=== PATIENT | female | born 1960 | race African-American/Black ===

== ENCOUNTER 2017-03-18 22:46 | Inpatient (IN) | payer BC ==
[~2017-03-18] VITALS: Ht 175.3 cm; Wt 89.8 kg
[2017-03-18] MEDS ORDERED: DIPHTH,PERTUSS(ACELL),TET TOX 0.5 ML DISP.SYRIN. VAX IM ONE (23:30)
[2017-03-18] MEDS ORDERED: PIPERACILLIN/TAZOBACTAM 3.375 GM in IV NORMAL SALINE 50ML 50 ML IV ONE (23:30)
[2017-03-18] MEDS ORDERED: fentaNYL PF VIAL 100 MCG/2 ML VIAL IV ONE (23:30)
[2017-03-18] MEDS ORDERED: IV NORMAL SALINE 1000ML BAG 1,000 ML IV ONE (23:30)
--- NOTE | 2017-03-18 23:37 | PHYS DOC ---
Past Medical History Past Medical History: No Pertinent History Past Surgical History: Hip Replacement Alcohol Use: None Drug Use: None Adult General Chief Complaint Chief Complaint: WRIST PAIN HPI HPI Patient is a 56 year old female with history of hip replacement who presents today complaining of moderate right wrist pain that began today after she fell. Patient denies any loss of consciousness. She states she was taking trash out with her when she saw 2 raccoons which scared her and fell down bracing herself with her right hand. Review of Systems Review of Systems Constitutional: Denies fever or chills [] Eyes: Denies change in visual acuity, redness, or eye pain [] HENT: Denies nasal congestion or sore throat [] Respiratory: Denies cough or shortness of breath [] Cardiovascular: No additional information not addressed in HPI [] GI: Denies abdominal pain, nausea, vomiting, bloody stools or diarrhea [] : Denies dysuria or hematuria [] Musculoskeletal: Right wrist pain Integument: Denies rash or skin lesions [] Neurologic: Denies headache, focal weakness or sensory changes [] Current Medications Current Medications Current Medications Medications (Trade) Dose Ordered Sig/Makenna Start Time Stop Time Status Last Admin Dose Admin Diphtheria/ Tetanus/Acell Pertussis (Boostrix) 0.5 ml ONCE ONCE 03/18/17 23:30 03/18/17 23:31 DC 03/19/17 00:09 0.5 ML Fentanyl Citrate (Fentanyl 2ml Vial) 75 mcg 1X ONCE 03/18/17 23:30 03/18/17 23:31 DC 03/19/17 00:08 75 MCG Piperacillin Sod/ Tazobactam Sod 3.375 gm/Sodium Chloride 50 ml @ 100 mls/hr ONCE ONCE 03/18/17 23:30 03/18/17 23:59 DC 03/19/17 00:11 100 MLS/HR Sodium Chloride 1,000 ml @ 75 mls/hr 1X ONCE 03/18/17 23:30 03/19/17 12:49 03/19/17 00:11 75 MLS/HR Allergies Allergies Allergies Coded Allergies Type Severity Reaction Last Updated Verified oxycodone Allergy Unknown 03/18/17 Yes Physical Exam Physical Exam Constitutional: Well developed, well nourished, no acute distress, non-toxic appearance. [] HENT: Normocephalic, atraumatic, bilateral external ears normal, oropharynx moist, no oral exudates, nose normal. [] Eyes: PERRLA, EOMI, conjunctiva normal, no discharge. [] Neck: Normal range of motion, no tenderness, supple, no stridor. [] Cardiovascular:Heart rate regular rhythm, no murmur [] Lungs & Thorax: Bilateral breath sounds clear to auscultation [] Abdomen: Bowel sounds normal, soft, no tenderness, no masses, no pulsatile masses. [] Skin: Warm, dry, no erythema, no rash. [] Back: No tenderness, no CVA tenderness. [] Extremities: Right wrist is obviously deformed. There are abrasions noted on the dorsal as well as ventral aspect of the wrist. Patient unable to take the wrist through any range of motion due to to pain. Patient able to wiggle her right fingers. +2 right radial pulse. Adequate radial medial and ulnar sensation to the right hand. Cap refill less than 2 seconds the right fingers. Neurologic: Alert and oriented X 3, normal motor function, normal sensory function, no focal deficits noted. [] Psychologic: Affect normal, judgement normal, mood normal. [] Current Patient Data Vital Signs Vital Signs Date Time Temp Pulse Resp B/P (MAP) Pulse Ox O2 Delivery O2 Flow Rate FiO2 03/18/17 23:00 98.6 80 16 95 Room Air 98.6 EKG EKG [] Radiology/Procedures Radiology/Procedures [] Course & Med Decision Making Course & Med Decision Making Pertinent Labs and Imaging studies reviewed. (See chart for details) Patient is in the ED with right wrist pain after falling today. Right wrist x- rays interpreted by Dr. King were positive for impacted open fractures of the distal radius. 23:29 Consulted with Dinorah BUSTAMANTE for Dr. Martini-who requested we splint patient, start her on antibiotics, keep her NPO and they will follow-up with patient tomorrow morning for surgery in AM 23:[address] Guerra who accepted patient for admission. Patient was admitted in stable condition. Dragon Disclaimer Dragon Disclaimer This electronic medical record was generated, in whole or in part, using a voice recognition dictation system. Departure Departure Impression: Primary Impression: Fall from standing Additional Impression: Distal radial fracture Disposition: ADMITTED INPATIENT Condition: STABLE Referrals: SHANELL SOSA MD (PCP) Problem Qualifiers Primary Impression: Fall from standing Encounter type: initial encounter Qualified Codes: W19.XXXA - Unspecified fall, initial encounter Additional Impression: Distal radial fracture Encounter type: initial encounter Fracture type: open Open fracture type: open type III Fracture morphology: other fracture Laterality: right Qualified Codes: S52.591C - Other fractures of lower end of right radius, initial encounter for open fracture type IIIA, IIIB, or IIIC LETTY DICKENS APRN Mar 18, 2017 23:37
[2017-03-19] VITALS (9 sets, daily range): BP systolic 124–137; BP diastolic 61–68
[2017-03-19] MEDS ORDERED: ONDANSETRON PF 4 MG/2 ML VIAL. IV PRN ×4 (00:15→17:00)
[2017-03-19] MEDS ORDERED: fentaNYL PF VIAL 100 MCG/2 ML VIAL IV PRN ×4 (00:15→12:15)
[2017-03-19 00:35] LABS: BASO # 0.1 x10^3/uL (0.0-0.2); BASO % 1 % (0-3); EOS % 1 % (0-3); HEMATOCRIT 31.8 % (36.0-47.0); HEMOGLOBIN 10.5 g/dL (12.0-15.5); LYMPH # 2.3 x10^3/uL (1.0-4.8); LYMPH % 24 % (24-48); MEAN CORPUSCULAR HEMOGLOBIN 29 pg (25-35); MEAN CORPUSCULAR HGB CONC 33 g/dL (31-37); MEAN CORPUSCULAR VOLUME 88 fL (79-100); MONO % 8 % (0-9); NEUT % 66 % (31-73); PLATELET COUNT 220 x10^3/uL (140-400); RED BLOOD COUNT 3.63 x10^6/uL (3.50-5.40); RED CELL DISTRIBUTION WIDTH 14.1 % (11.5-14.5); WHITE BLOOD COUNT 9.3 x10^3/uL (4.0-11.0)
[2017-03-19 00:41] LABS: CALCIUM 8.7 mg/dL (8.5-10.1); CREATININE 1.1 mg/dL (0.6-1.0); GFR 61.7; POTASSIUM 3.2 mmol/L (3.5-5.1)
[2017-03-19 00:45] LABS: INR 1.1 (0.8-1.1); PROTHROMBIN TIME PATIENT 13.8 SEC (11.7-14.0)
[2017-03-19] MEDS ORDERED: CEFD300C PO (02:03)
[2017-03-19] MEDS ORDERED: AMOX500C PO (02:03)
[2017-03-19] MEDS ORDERED: SIMV20TA3 PO (02:03)
[2017-03-19] MEDS: PIPERACILLIN/TAZOBACTAM 3.375 GM in IV NORMAL SALINE 50ML 50 ML IV SCH ×3 (06:35→22:04)
--- NOTE | 2017-03-19 07:40 | RAD ---
Wrist x-rays Indication: Fall on wrist. Pain and deformity. Technique: 3 views of the right wrist Comparison: None Findings: Comminuted fracture of the distal radius noted with significant malalignment of the fracture fragments. Dorsal angulation of the dominant distal fracture fragment noted. The fracture extends to the distal radioulnar joint. Moderately displaced fracture of the ulnar styloid process noted. Significant soft tissue edema with soft tissue emphysema is seen around the fracture site. No fractures of the carpal bones. Impression: Comminuted fracture of the distal radius with moderate malalignment of the fracture fragments.
[2017-03-19] MEDS ORDERED: ACETAMINOPHEN 500 MG TABLET PO PRN (08:15)
[2017-03-19] MEDS ORDERED: HYDROcodone/APAP 5/325MG 1 TAB TABLET PO PRN (08:15)
--- NOTE | 2017-03-19 10:59 | PDOC1 ---
History and Physical Date of Admission Date of Admission DATE: 03/19/17 TIME: 10:54 Identification/Chief Complaint Chief Complaint rt hand pain Problems: Source Source: Caregiver, Chart review, Patient History of Present Illness History of Present Illness Very pleasant 56 y.o AA female, relatively healthy, she was taking trash out with her when she saw 2 raccoons which scared her and fell down bracing herself with her right hand. SHe sustained a fx on imaging, NOw admitted with sx planned in few hrs time. 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 Wants to go back to work soon if she can. She is RT handed,. LAbs hgb 10, normocytic indices K 3.2 CREat 1.1 GFR 60s Denies kidney probs in past VS ok Past Medical History Cardiovascular: No pertinent hx Pulmonary: No pertinent hx GI: No pertinent hx Heme/Onc: No pertinent hx Hepatobiliary: No pertinent hx Psych: No pertinent hx Rheumatologic: No pertinent hx Infectious disease: No pertinent hx ENT: No pertinent hx Renal/: No pertinent hx Past Surgical History Past Surgical History: No pertinent history Family History Family History: Hypertension Social History Smoke: No ALCOHOL: none Drugs: None Current Problem List Problem List Problems Medical Problems: (1) Distal radial fracture Status: Acute (2) Fall from standing Status: Acute Problems: Current Medications Current Medications Current Medications Diphtheria/ Tetanus/Acell Pertussis (Boostrix) 0.5 ml ONCE ONCE VAX IM Last administered on 03/19/17 00:09; Start 03/18/17 at 23:30; Stop 03/18/17 at 23:31 ; Status DC Fentanyl Citrate (Fentanyl 2ml Vial) 75 mcg 1X ONCE IV Last administered on 00:08; Start 03/18/17 at 23:30; Stop 03/18/17 at 23:31; Status DC Piperacillin Sod/ Tazobactam Sod 3.375 gm/Sodium Chloride 50 ml @ 100 mls/hr Q8HRS IV Last administered on 03/19/17 06:35; Start 03/19/17 at 06:00 Sodium Chloride 1,000 ml @ 75 mls/hr 1X ONCE IV Last administered on 00:11; Start 03/18/17 at 23:30; Stop 03/19/17 at 12:49 Piperacillin Sod/ Tazobactam Sod 3.375 gm/Sodium Chloride 50 ml @ 100 mls/hr ONCE ONCE IV Last administered on 03/19/17 00:11; Start 03/18/17 at 23:30; Stop 03/18/17 at 23:59; Status DC Ondansetron HCl (Zofran) 4 mg PRN Q8HRS PRN IV NAUSEA/VOMITING Last administered on 03/19/17 00:53; Start 03/19/17 at 00:15; Stop 03/19/17 at 08:04 ; Status DC Fentanyl Citrate (Fentanyl 2ml Vial) 50 mcg PRN Q1HR PRN IV PAIN Last administered on 03/19/17 03:29; Start 03/19/17 at 00:15; Stop 03/20/17 at 00:14 Ondansetron HCl (Zofran) 4 mg PRN Q6HRS PRN IV NAUSEA/VOMITING; Start 03/19/17 at 08:02; Stop 03/20/17 at 08:01 Acetaminophen (Tylenol) 500 mg PRN Q6HRS PRN PO MILD PAIN / TEMP; Start at 08:15 Acetaminophen/ Hydrocodone Bitart (Lortab 5/325) 1 tab PRN Q4HRS PRN PO PAIN; Start 03/19/17 at 08:15 Simvastatin (Zocor) 20 mg HS PO ; Start 03/19/17 at 21:00 Active Scripts Active Reported Amoxicillin 500 Mg Capsule 2,000 Mg PO PRN PRN Simvastatin 20 Mg Tablet 20 Mg PO HS Cefdinir 300 Mg Capsule 300 Mg PO BID Allergies Allergies: Coded Allergies: oxycodone (Verified Adverse Reaction, Intermediate, HALLUCINATION, 03/19/17 ) ROS Review of System pain Rt hand, all else is neg Physical Exam General: Alert, Oriented X3, Cooperative, No acute distress HEENT: Atraumatic, PERRLA, EOMI Lungs: Clear to auscultation, Normal air movement Heart: S1S2, RRR, no thrills, no rubs, no gallops, no murmurs Cardiovascular: S1, S2 Breasts: Normal, Rt breast nml w/o mass, Lt breast nml w/o mass, Nipples normal Abdomen: Normal bowel sounds, Soft, No tenderness, No hepatosplenomegaly, No masses Rectal Exam: not examined PELVIC: Nml ext genitalia Extremities: Other (RT hand in cast) Skin: No rashes, No breakdown, No significant lesion Neuro: Normal gait, Normal speech, Strength at 5/5 X4 ext, Normal tone, Sensation intact, Cranial nerves 3-12 NL, Reflexes 2+ Psych/Mental Status: Mental status NL, Mood NL Vitals Vitals Vital Signs Date Time Temp Pulse Resp B/P (MAP) Pulse Ox O2 Delivery O2 Flow Rate FiO2 03/19/17 08:05 Room Air 03/19/17 07:00 97.9 91 19 130/63 (85) 98 97.9 Labs Labs Laboratory Tests Test 03/19/17 00:10 White Blood Count 9.3 x10^3/uL (4.0-11.0) Red Blood Count 3.63 x10^6/uL (3.50-5.40) Hemoglobin 10.5 g/dL (12.0-15.5) Hematocrit 31.8 % (36.0-47.0) Mean Corpuscular Volume 88 fL (79-100) Mean Corpuscular Hemoglobin 29 pg (25-35) Mean Corpuscular Hemoglobin Concent 33 g/dL (31-37) Red Cell Distribution Width 14.1 % (11.5-14.5) Platelet Count 220 x10^3/uL (140-400) Neutrophils (%) (Auto) 66 % (31-73) Lymphocytes (%) (Auto) 24 % (24-48) Monocytes (%) (Auto) 8 % (0-9) Eosinophils (%) (Auto) 1 % (0-3) Basophils (%) (Auto) 1 % (0-3) Neutrophils # (Auto) 6.2 x10^3uL (1.8-7.7) Lymphocytes # (Auto) 2.3 x10^3/uL (1.0-4.8) Monocytes # (Auto) 0.7 x10^3/uL (0.0-1.1) Eosinophils # (Auto) 0.1 x10^3/uL (0.0-0.7) Basophils # (Auto) 0.1 x10^3/uL (0.0-0.2) Prothrombin Time 13.8 SEC (11.7-14.0) Prothromb Time International Ratio 1.1 (0.8-1.1) Activated Partial Thromboplast Time 26 SEC (24-38) Sodium Level 142 mmol/L (136-145) Potassium Level 3.2 mmol/L (3.5-5.1) Chloride Level 106 mmol/L (98-107) Carbon Dioxide Level 31 mmol/L (21-32) Anion Gap 5 (6-14) Blood Urea Nitrogen 20 mg/dL (7-20) Creatinine 1.1 mg/dL (0.6-1.0) Estimated GFR (Cockcroft-Gault) 61.7 Glucose Level 155 mg/dL (70-99) Calcium Level 8.7 mg/dL (8.5-10.1) Laboratory Tests Test 03/19/17 00:10 White Blood Count 9.3 x10^3/uL (4.0-11.0) Red Blood Count 3.63 x10^6/uL (3.50-5.40) Hemoglobin 10.5 g/dL (12.0-15.5) Hematocrit 31.8 % (36.0-47.0) Mean Corpuscular Volume 88 fL (79-100) Mean Corpuscular Hemoglobin 29 pg (25-35) Mean Corpuscular Hemoglobin Concent 33 g/dL (31-37) Red Cell Distribution Width 14.1 % (11.5-14.5) Platelet Count 220 x10^3/uL (140-400) Neutrophils (%) (Auto) 66 % (31-73) Lymphocytes (%) (Auto) 24 % (24-48) Monocytes (%) (Auto) 8 % (0-9) Eosinophils (%) (Auto) 1 % (0-3) Basophils (%) (Auto) 1 % (0-3) Neutrophils # (Auto) 6.2 x10^3uL (1.8-7.7) Lymphocytes # (Auto) 2.3 x10^3/uL (1.0-4.8) Monocytes # (Auto) 0.7 x10^3/uL (0.0-1.1) Eosinophils # (Auto) 0.1 x10^3/uL (0.0-0.7) Basophils # (Auto) 0.1 x10^3/uL (0.0-0.2) Prothrombin Time 13.8 SEC (11.7-14.0) Prothromb Time International Ratio 1.1 (0.8-1.1) Activated Partial Thromboplast Time 26 SEC (24-38) Sodium Level 142 mmol/L (136-145) Potassium Level 3.2 mmol/L (3.5-5.1) Chloride Level 106 mmol/L (98-107) Carbon Dioxide Level 31 mmol/L (21-32) Anion Gap 5 (6-14) Blood Urea Nitrogen 20 mg/dL (7-20) Creatinine 1.1 mg/dL (0.6-1.0) Estimated GFR (Cockcroft-Gault) 61.7 Glucose Level 155 mg/dL (70-99) Calcium Level 8.7 mg/dL (8.5-10.1) VTE Prophylaxis Ordered VTE Prophylaxis Devices: Yes VTE Pharmacological Prophylaxi: Yes Assessment/Plan Assessment/Plan 1. IMpacted RT distal radius fx, traumatic 2. MALACHI , unsure if there is exsiting CKD (GFR 60s) 3. Hypokalemia PLAN: Admit, NPO STart IVF Replace K IV since nPO Re check BMP miah Jun, to 25 IV - opiate naive Check vit D levels PT/OT Dw pt and and RN MAI Brooke MD Mar 19, 2017 10:59
[2017-03-19] MEDS: IV NORMAL SALINE 1000ML BAG 1,000 ML IV SCH ×2 (11:30→21:24)
[2017-03-19] MEDS ORDERED: IV RINGERS,LACTATED 1000ML 1,000 ML IV SCH (12:09)
[2017-03-19] MEDS ORDERED: PROCHLORPERAZINE 10 MG/2 ML VIAL. IV PRN (12:15)
[2017-03-19] MEDS ORDERED: LIDOCAINE 1% 1 ML SYRINGE. ID PRN (12:15)
[2017-03-19] MEDS ORDERED: BUPIVACAINE-EPI 0.25%-1:200000 MPF 30 ML VIAL. ONE (13:28)
[2017-03-19] MEDS: POTASSIUM CHLORIDE 10MEQ 100 ML IV SCH ×4 (13:33→22:05)
[2017-03-19] MEDS ORDERED: fentaNYL PF VIAL 100 MCG/2 ML VIAL ONE ×2 (14:06→15:42)
[2017-03-19] MEDS ORDERED: LIDOCAINE 2% PF Vial for OR 5 ML VIAL. ONE (14:06)
[2017-03-19] MEDS ORDERED: PROPOFOL 20 ML IV ONE (14:06)
--- NOTE | 2017-03-19 15:00 | PDOC2 ---
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 She tried to run away and she fell on an outstretched hand. She's had pain and deformity since then. It was reported as a possible open fracture with an abrasion near the injury. Past Medical History Cardiovascular: No pertinent hx Pulmonary: No pertinent hx GI: No pertinent hx Heme/Onc: No pertinent hx Hepatobiliary: No pertinent hx Psych: No pertinent hx Rheumatologic: No pertinent hx Infectious disease: No pertinent hx ENT: No pertinent hx Renal/: No pertinent hx Past Surgical History Past Surgical History She had a left total hip replacement about 5 years ago at [facility] Past Surgical History: Total hip replacement Family History Family History Her father had coronary artery bypass surgery and ultimately of cancer. Her brother had several cardiac stents placed within the last year. Family History: Coronary Artery Disease, Hypertension Social History Social History She denies alcohol or tobacco use. She is right-handed. She is employed. No ALCOHOL: none Drugs: None Current Problem List Problem List Problems Medical Problems: (1) Distal radial fracture Status: Acute (2) Fall from standing Status: Acute Current Medications Current Medications Current Medications Diphtheria/ Tetanus/Acell Pertussis (Boostrix) 0.5 ml ONCE ONCE VAX IM Last administered on 03/19/17 00:09; Start 03/18/17 at 23:30; Stop 03/18/17 at 23:31 ; Status DC Fentanyl Citrate (Fentanyl 2ml Vial) 75 mcg 1X ONCE IV Last administered on 00:08; Start 03/18/17 at 23:30; Stop 03/18/17 at 23:31; Status DC Piperacillin Sod/ Tazobactam Sod 3.375 gm/Sodium Chloride 50 ml @ 100 mls/hr Q8HRS IV Last administered on 03/19/17 13:33; Start 03/19/17 at 06:00 Sodium Chloride 1,000 ml @ 75 mls/hr 1X ONCE IV Last administered on 00:11; Start 03/18/17 at 23:30; Stop 03/19/17 at 11:55; Status DC Piperacillin Sod/ Tazobactam Sod 3.375 gm/Sodium Chloride 50 ml @ 100 mls/hr ONCE ONCE IV Last administered on 03/19/17 00:11; Start 03/18/17 at 23:30; Stop 03/18/17 at 23:59; Status DC Ondansetron HCl (Zofran) 4 mg PRN Q8HRS PRN IV NAUSEA/VOMITING Last administered on 03/19/17 00:53; Start 03/19/17 at 00:15; Stop 03/19/17 at 08:04 ; Status DC Fentanyl Citrate (Fentanyl 2ml Vial) 50 mcg PRN Q1HR PRN IV PAIN Last administered on 03/19/17 03:29; Start 03/19/17 at 00:15; Stop 03/19/17 at 10:54 ; Status DC Ondansetron HCl (Zofran) 4 mg PRN Q6HRS PRN IV NAUSEA/VOMITING; Start 03/19/17 at 08:02; Stop 03/20/17 at 08:01 Acetaminophen (Tylenol) 500 mg PRN Q6HRS PRN PO MILD PAIN / TEMP; Start at 08:15 Acetaminophen/ Hydrocodone Bitart (Lortab 5/325) 1 tab PRN Q4HRS PRN PO PAIN; Start 03/19/17 at 08:15 Simvastatin (Zocor) 20 mg HS PO ; Start 03/19/17 at 21:00 Fentanyl Citrate (Fentanyl 2ml Vial) 25 mcg PRN Q2HR PRN IV PAIN Last administered on 03/19/17 11:53; Start 03/19/17 at 10:52; Stop 03/20/17 at 10:51 Sodium Chloride 1,000 ml @ 100 mls/hr Q10H IV Last administered on 03/19/17 11:30; Start 03/19/17 at 11:30 Potassium Chloride 100 ml @ 100 mls/hr Q1H IV Last administered on 03/19/17 13:33; Start 03/19/17 at 12:00; Stop 03/19/17 at 15:59 Ondansetron HCl (Zofran) 4 mg PRN Q6HRS PRN IV NAUSEA/VOMITING; Start 03/19/17 at 12:15; Stop 03/20/17 at 12:14 Fentanyl Citrate (Fentanyl 2ml Vial) 25 mcg PRN Q5MIN PRN IV MILD PAIN; Start 03/19/17 at 12:15; Stop 03/20/17 at 12:14 Fentanyl Citrate (Fentanyl 2ml Vial) 50 mcg PRN Q5MIN PRN IV MODERATE PAIN; Start 03/19/17 at 12:15; Stop 03/20/17 at 12:14 Ringer's Solution 1,000 ml @ 30 mls/hr Q24H IV ; Start 03/19/17 at 12:09; Stop 03/20/17 at 00:08 Lidocaine HCl 2 ml PRN 1X PRN ID PRIOR TO IV START; Start 03/19/17 at 12:15; Stop 03/20/17 at 12:14 Prochlorperazine Edisylate (Compazine) 5 mg PACU PRN PRN IV NAUSEA, MRX1; Start 03/19/17 at 12:15; Stop 03/20/17 at 12:14 Bupivacaine HCl/ Epinephrine Bitart (Sensorcaine-Epi 0.25%-1:[id number] Mpf) 30 ml STK-MED ONCE .ROUTE ; Start 03/19/17 at 13:28; Stop 03/19/17 at 13:29; Status DC Propofol 20 ml @ As Directed STK-MED ONCE IV ; Start 03/19/17 at 14:06; Stop at 14:07; Status DC Lidocaine HCl (Lidocaine Pf 2% Vial) 5 ml STK-MED ONCE .ROUTE ; Start 03/19/17 at 14:06; Stop 03/19/17 at 14:07; Status DC Fentanyl Citrate (Fentanyl 2ml Vial) 100 mcg STK-MED ONCE .ROUTE ; Start at 14:06; Stop 03/19/17 at 14:07; Status DC Cefazolin Sodium/ Dextrose 50 ml @ As Directed STK-MED ONCE IV ; Start 03/19/17 at 14:27; Stop 03/19/17 at 14:28; Status DC Active Scripts Active Reported Amoxicillin 500 Mg Capsule 2,000 Mg PO PRN PRN Simvastatin 20 Mg Tablet 20 Mg PO HS Cefdinir 300 Mg Capsule 300 Mg PO BID Allergies Allergies: Coded Allergies: oxycodone (Verified Adverse Reaction, Intermediate, HALLUCINATION, 03/19/17 ) ROS HEENT: No: Heacaches Respiratory: No: Cough Cardiovascular: No Chest Pain Gastrointestinal: Yes Nausea, Yes Other (she frequently gets nauseated with narcotics. She has used Zofran successfully before.) Musculoskeletal: Yes Gait Disturbance (she feels like her total hip replacement contributed to her fall but she denies any problems with the hip otherwise), Yes Joint Pain, Yes Joint Swelling Physical Exam General: Alert, Oriented X3, Cooperative, No acute distress HEENT: PERRLA, Mucous membr. moist/pink Lungs: Normal air movement Heart: Regular rate Abdomen: Soft Extremities: No cyanosis, Other (deformity of the right wrist, which is currently splinted. Light touch sensation intact in the fingers.) Skin: Other (abrasion near the fracture site) Neuro: Normal speech Psych/Mental Status: Mood NL Vitals VITALS Vital Signs Date Time Temp Pulse Resp B/P (MAP) Pulse Ox O2 Delivery O2 Flow Rate FiO2 03/19/17 14:19 99.8 70 16 139/68 99 Room Air 99.8 Labs Labs Laboratory Tests Test 03/19/17 00:10 White Blood Count 9.3 x10^3/uL (4.0-11.0) Red Blood Count 3.63 x10^6/uL (3.50-5.40) Hemoglobin 10.5 g/dL (12.0-15.5) Hematocrit 31.8 % (36.0-47.0) Mean Corpuscular Volume 88 fL (79-100) Mean Corpuscular Hemoglobin 29 pg (25-35) Mean Corpuscular Hemoglobin Concent 33 g/dL (31-37) Red Cell Distribution Width 14.1 % (11.5-14.5) Platelet Count 220 x10^3/uL (140-400) Neutrophils (%) (Auto) 66 % (31-73) Lymphocytes (%) (Auto) 24 % (24-48) Monocytes (%) (Auto) 8 % (0-9) Eosinophils (%) (Auto) 1 % (0-3) Basophils (%) (Auto) 1 % (0-3) Neutrophils # (Auto) 6.2 x10^3uL (1.8-7.7) Lymphocytes # (Auto) 2.3 x10^3/uL (1.0-4.8) Monocytes # (Auto) 0.7 x10^3/uL (0.0-1.1) Eosinophils # (Auto) 0.1 x10^3/uL (0.0-0.7) Basophils # (Auto) 0.1 x10^3/uL (0.0-0.2) Prothrombin Time 13.8 SEC (11.7-14.0) Prothromb Time International Ratio 1.1 (0.8-1.1) Activated Partial Thromboplast Time 26 SEC (24-38) Sodium Level 142 mmol/L (136-145) Potassium Level 3.2 mmol/L (3.5-5.1) Chloride Level 106 mmol/L (98-107) Carbon Dioxide Level 31 mmol/L (21-32) Anion Gap 5 (6-14) Blood Urea Nitrogen 20 mg/dL (7-20) Creatinine 1.1 mg/dL (0.6-1.0) Estimated GFR (Cockcroft-Gault) 61.7 Glucose Level 155 mg/dL (70-99) Calcium Level 8.7 mg/dL (8.5-10.1) Laboratory Tests Test 03/19/17 00:10 White Blood Count 9.3 x10^3/uL (4.0-11.0) Red Blood Count 3.63 x10^6/uL (3.50-5.40) Hemoglobin 10.5 g/dL (12.0-15.5) Hematocrit 31.8 % (36.0-47.0) Mean Corpuscular Volume 88 fL (79-100) Mean Corpuscular Hemoglobin 29 pg (25-35) Mean Corpuscular Hemoglobin Concent 33 g/dL (31-37) Red Cell Distribution Width 14.1 % (11.5-14.5) Platelet Count 220 x10^3/uL (140-400) Neutrophils (%) (Auto) 66 % (31-73) Lymphocytes (%) (Auto) 24 % (24-48) Monocytes (%) (Auto) 8 % (0-9) Eosinophils (%) (Auto) 1 % (0-3) Basophils (%) (Auto) 1 % (0-3) Neutrophils # (Auto) 6.2 x10^3uL (1.8-7.7) Lymphocytes # (Auto) 2.3 x10^3/uL (1.0-4.8) Monocytes # (Auto) 0.7 x10^3/uL (0.0-1.1) Eosinophils # (Auto) 0.1 x10^3/uL (0.0-0.7) Basophils # (Auto) 0.1 x10^3/uL (0.0-0.2) Prothrombin Time 13.8 SEC (11.7-14.0) Prothromb Time International Ratio 1.1 (0.8-1.1) Activated Partial Thromboplast Time 26 SEC (24-38) Sodium Level 142 mmol/L (136-145) Potassium Level 3.2 mmol/L (3.5-5.1) Chloride Level 106 mmol/L (98-107) Carbon Dioxide Level 31 mmol/L (21-32) Anion Gap 5 (6-14) Blood Urea Nitrogen 20 mg/dL (7-20) Creatinine 1.1 mg/dL (0.6-1.0) Estimated GFR (Cockcroft-Gault) 61.7 Glucose Level 155 mg/dL (70-99) Calcium Level 8.7 mg/dL (8.5-10.1) Images Images Review the wrist x-rays and the report. She has a comminuted distal radius fracture which is markedly displaced. Doubtful that there is any intra- articular involvement of the radiocarpal joint. There is involvement of the radioulnar joint. There is significant shortening. Assessment/Plan Assessment/Plan Closer (possible open) right wrist distal radius fracture, comminuted, multi fragmentary and displaced. No specific radiocarpal articular involvement. She and I discussed the risks benefits and alternatives of surgery. I discussed some of the historical treatments for distal radius fracture such as casting or external fixators and pins. Based on the current technology recommendation is internal fixation after open reduction. We talked about the potential risks such as stiffness, shortening, malunion or nonunion, need for hardware removal, bleeding, neurovascular injury such as the radial artery or median nerve, loss of sensation, loss of strength, painful stiff wrist after surgery or other potential risks. Despite the risks of surgery and he recommended surgery because of the marked displacement. This would do very poorly without surgery of some type. I advised her to use calcium and vitamin D, and also start vitamin C to help prevent CRPS. We will give antibiotics perioperatively to prevent infection. I demonstrated the surgery using paper prints of her x-rays, and a paper print of the Accu lock volar distal radius plate. All of her questions about surgery were answered and she desired to proceed. Written consent was obtained. The correct arm was marked by me. CARLA DOMINGUEZ MD Mar 19, 2017 15:00
[2017-03-19] MEDS ORDERED: SEVOFLURANE 61 TO 120 MINUTES. IH ONE (15:10)
[2017-03-19] MEDS ORDERED: PHENYLEPHRINE in 0.9% NACL PF 1 MG/10 ML DISP.SYRIN. IV ONE (15:20)
[2017-03-19] MEDS ORDERED: ONDANSETRON PF 4 MG/2 ML VIAL. ONE (15:36)
[2017-03-19] MEDS ORDERED: KETOROLAC 60 MG/2 ML INJ FOR OR. ONE (16:30)
[2017-03-19] MEDS ORDERED: HYDROcodone/APAP 7.5/325MG 1 TAB TABLET PO PRN ×2 (17:00)
[2017-03-19] MEDS ORDERED: POLYETHYLENE GLYCOL 3350 17 GM PACKET. PO PRN (17:00)
[2017-03-19] MEDS ORDERED: MORPHINE SULFATE 4 MG/ML DISP.SYRIN. IV PRN (17:00)
[2017-03-19] MEDS ORDERED: DEXTROSE 50% 25 GM / 50ML DISP.SYRIN. IV PRN (17:00)
[2017-03-19] MEDS ORDERED: traMADol 50 MG TABLET PO PRN (17:00)
[2017-03-19] MEDS ORDERED: MORPHINE SULFATE 2 MG/ML DISP.SYRIN. IV PRN (17:00)
[2017-03-19] MEDS ORDERED: SIMVASTATIN 20 MG TABLET PO SCH (21:00)
[2017-03-19] MEDS: KETOROLAC TROMETHAMINE 30 MG/ML INJ. IV SCH (21:25)
--- NOTE | 2017-03-20 00:31 | ACF ---
Admission Forms Criteria MUSCULOSKELETAL DISEASE GRG Clinical Indications for Admission to Inpatient Care (Place 'X' for any and all applicable criteria): Hospital admission is needed for appropriate care of the patient because of 1 or more of the following: [X]I. Fracture, dislocation, or other musculoskeletal injury requiring inpatient care(medical) as indicated by 1 or more of the following(4)(5)(6)(7) [ ]a) Vertebral fracture requiring observation for instability or neurologic compromise (8) [ ]b) Compartment syndrome (proven or cannot be ruled out during observation level of care) (9) [ ]c) Limb-threatening injury [ ]d) Major injury requiring inpatient stabilization such as traction initiation or external fixation before internal fixation or closure of complex or open fracture [ ]e) Major injury requiring inpatient treatment after emergency or observation level care (as appropriate) [X]f) Severe pain requiring acute inpatient management [ ]g) Injury with suspicion of abuse or neglect (eg., child, dependent elderly) [ ]II. Newly diagnosed or suspected bone, joint, or orthopedic device infection (e.g., osteomyelitis, septic arthritis) needing 1 or more of the following(1)(2)(3) [ ]a) IV antibiotics that cannot be initiated in other than inpatient setting (e.g., patient too unstable or home infusion not available) [ ]b) Device removal or replacement [ ]c) Bone or soft tissue debridement [ ]d) Joint drainage (drain placement or repetitive aspirations) [ ]III. Severe rheumatologic disease (e.g., systemic lupus erythematosus, rheumatoid arthritis) with complications or comorbidities (Also use Optimal Recovery Care Criteria or General Recovery Criteria as appropriate on the basis of predominant condition), including 1 or more of the following( 10)(11)(12)(13) [ ]a) Severe infection (e.g., FUEL [employer]ION SYSTEM OPERATOR infection, sepsis) (14) [ ]b) Respiratory complications, including 1 or more of the following : [ ]i) Pleural effusion with respiratory compromise [ ]ii) Pulmonary hypertension with congestive failure [ ]iii) Respiratory failure [ ]iv) Pulmonary hemorrhage (15) [ ]c) Hematologic disease, including 1 or more of the following: [ ]i) Coagulopathy with bleeding [ ]ii) Thrombosis with hypercoagulable state [ ]iii) Thrombotic thrombocytopenic purpura [ ]d) Cerebritis with seizures, psychosis, or other severe abnormalities [ ]e) Vertebral destruction with monitoring needed for cervical myelopathy& possible respiratory compromise [ ]f) Exacerbation that requires inpatient treatment (e.g., intravenous immunosuppression) (16) [ ]g) Acute renal failure [ ]h) Cerebritis with seizures, psychosis, Altered mental status, or other neurologic abnormalities [ ]i) Pericardial effusion with tamponade [ ]j) Vertebral destruction, with monitoring needed for cervical myelopathy and possible respiratory compromise [ ]IV. Severe vasculitis with complications or comorbidities (Also use Optimal Recovery Care Criteria General Recovery Criteria as appropriate on the basis of predominant condition), including 1 or more of the following(11)(12)(17)(18)(19)(20) [ ]a) Exacerbation that requires inpatient treatment (e.g., intravenous immunosuppression) (19)(21) [ ]b) Pulmonary hemorrhage (15) [ ]c) FUEL [employer]ION SYSTEM OPERATOR vasculitis with seizures, psychosis, Altered mental status that is severe or persistent, or other severe abnormalities (22) [ ]d) Cerebral infarction [ ]e) Gastrointestinal ischemia [ ]f) Gangrene or threatened amputation [ ]g) Renal failure (16) [ ]h) Other significant complications of vasculitis ( eg., tissue or organ ischemia, organ dysfunction ) [ ]V. Severe myopathy as indicated by 1 or more of the following (28)(29) [ ]a) New onset of airway compromise or inability to swallow [ ]b) Respiratory deterioration with observation needed for impending respiratory failure [ ]c) Exacerbation that requires inpatient treatment (e.g., intravenous immunosuppression) [ ]. Severe crystal gout (arthropathy) indicated by 1 or more of the following (23)(24) [ ]a) Severe pain requiring acute inpatient management [ ]b) Exacerbation that requires inpatient treatment (e.g., intravenous treatment) [ ]VII.Rhabdomyolysis and 1 or more of the following (25)(26)(27) [ ]a) Acute renal failure [ ]b) Need for intravenous hydration after emergency or observation level care (as appropriate) [ ]c) Inability to maintain oral hydration [ ]d) Change in mental status [ ]e) Electrolyte abnormality that remains after emergency or observation level care (as appropriate) [ ]VIII Post amputation complication, as indicated by ANY ONE of the following [ ]a) Infection [ ]b) Dehiscence [ ]c) Myodesis failure [ ]IX. Severe pain requiring acute inpatient management due to musculoskeletal condition [ ]X. Musculoskeletal Disease and ALL of the following: [ ]a) Symptom or finding for which emergency and observation care have failed or are not considered appropriate (Use General Criteria: Observation Care as appropriate) [ ]b) Presence of ANY ONE of the following [ ]i) A General Admission Criteria [ ]ii) A Pediatric General Admission Criteria The original [facility] [employer] content created by [facility] has been revised. The portions of the content which have been revised are identified through the use of italic text or in bold, and [facility] has neither reviewed nor approved the modified material. All other unmodified content is copyright [facility]. Please see references footnoted in the original [facility] edition 2016 Admission Criteria Met?: Yes MURTAZA MAIN Mar 20, 2017 00:31
[2017-03-20] MEDS: KETOROLAC TROMETHAMINE 30 MG/ML INJ. IV SCH ×3 (00:56→11:25)
[2017-03-20] MEDS: POTASSIUM CHLORIDE 10MEQ 100 ML IV SCH (00:56)
[2017-03-20 03:00] VITALS: BP 122/56
[2017-03-20] MEDS: PIPERACILLIN/TAZOBACTAM 3.375 GM in IV NORMAL SALINE 50ML 50 ML IV SCH ×2 (05:47→14:04)
[2017-03-20] MEDS ORDERED: MAGNESIUM HYDROXIDE 2,400 MG/30 ML ORAL.SUSP. PO PRN (06:00)
[2017-03-20 07:38] VITALS: BP 120/48
[2017-03-20] MEDS ORDERED: MORPHINE SULFATE 4 MG/ML DISP.SYRIN. IV PRN (07:53)
[2017-03-20] MEDS ORDERED: ASPIRIN 325 MG TABLET PO SCH (08:00)
[2017-03-20] MEDS: IV NORMAL SALINE 1000ML BAG 1,000 ML IV SCH (08:40)
[2017-03-20] MEDS ORDERED: SENNOSIDES/DOCUSATE 8.6/50MG TABLET. PO SCH (09:00)
[2017-03-20] MEDS ORDERED: CHOLECALCIFEROL (VITAMIN D3) 1,000 UNIT TABLET PO SCH (09:00)
[2017-03-20 11:33] VITALS: BP 134/67
--- NOTE | 2017-03-20 12:38 | PDOC3 ---
Discharge Summary Visit Information Date of Admission: Mar 19, 2017 Date of Discharge: Mar 20, 2017 Admitting Diagnosis Comment: 1. IMpacted RT distal radius fx, traumatic s/p Sx POD # 1 2. MALACHI , unsure if there is exsiting CKD (GFR 60s) 3. Hypokalemia Final Diagnosis Problems Medical Problems: (1) Distal radial fracture Status: Acute (2) Fall from standing Status: Acute Brief Hospital Course Allergies Allergies Coded Allergies Type Severity Reaction Last Updated Verified oxycodone Adverse Reaction Intermediate HALLUCINATION 03/19/17 Yes Vital Signs Vital Signs Date Time Temp Pulse Resp B/P (MAP) Pulse Ox O2 Delivery O2 Flow Rate FiO2 03/20/17 11:33 98.4 88 19 134/67 (89) 98 Room Air 98.4 03/19/17 17:15 10 Lab Results Laboratory Tests Test 03/19/17 00:10 White Blood Count 9.3 x10^3/uL (4.0-11.0) Red Blood Count 3.63 x10^6/uL (3.50-5.40) Hemoglobin 10.5 g/dL (12.0-15.5) Hematocrit 31.8 % (36.0-47.0) Mean Corpuscular Volume 88 fL (79-100) Mean Corpuscular Hemoglobin 29 pg (25-35) Mean Corpuscular Hemoglobin Concent 33 g/dL (31-37) Red Cell Distribution Width 14.1 % (11.5-14.5) Platelet Count 220 x10^3/uL (140-400) Neutrophils (%) (Auto) 66 % (31-73) Lymphocytes (%) (Auto) 24 % (24-48) Monocytes (%) (Auto) 8 % (0-9) Eosinophils (%) (Auto) 1 % (0-3) Basophils (%) (Auto) 1 % (0-3) Neutrophils # (Auto) 6.2 x10^3uL (1.8-7.7) Lymphocytes # (Auto) 2.3 x10^3/uL (1.0-4.8) Monocytes # (Auto) 0.7 x10^3/uL (0.0-1.1) Eosinophils # (Auto) 0.1 x10^3/uL (0.0-0.7) Basophils # (Auto) 0.1 x10^3/uL (0.0-0.2) Prothrombin Time 13.8 SEC (11.7-14.0) Prothromb Time International Ratio 1.1 (0.8-1.1) Activated Partial Thromboplast Time 26 SEC (24-38) Sodium Level 142 mmol/L (136-145) Potassium Level 3.2 mmol/L (3.5-5.1) Chloride Level 106 mmol/L (98-107) Carbon Dioxide Level 31 mmol/L (21-32) Anion Gap 5 (6-14) Blood Urea Nitrogen 20 mg/dL (7-20) Creatinine 1.1 mg/dL (0.6-1.0) Estimated GFR (Cockcroft-Gault) 61.7 Glucose Level 155 mg/dL (70-99) Calcium Level 8.7 mg/dL (8.5-10.1) Brief Hospital Course Ms. Wallis is a 56 old Aa female, otherwsie healthy fell after she got scared when she saw a squirrel, had a distal RT radial fx, underwent sx by ortho, SOme low grade temps post op, UA pending, no URI sxs, but wanting to go home, [place] and is RT handed. Short term disability paperwork c/.o ortho Pt seen and examined I did order IS and UA. NO PT and oT needs BAck to home today if ok with ortho Pt seen and examined Rx for lortab left OPiate naive Time 32 mins Discharge Information Condition at Discharge: Improved, Stable Follow Up: Weeks (Ortho 2 weeks) Disposition/Orders: D/C to Home Scheduled Cefdinir (Cefdinir), 300 MG PO BID, (Reported) Simvastatin (Simvastatin), 20 MG PO HS, (Reported) Scheduled PRN Amoxicillin (Amoxicillin), 2,000 MG PO PRN PRN for SEE COMMENTS, (Reported) MAI KNIGHT MD Mar 20, 2017 12:38
[2017-03-20 13:05] LABS: BILIRUBIN,URINE NEGATIVE (NEG); GLUCOSE,URINE NEGATIVE (NEG); NITRITE,URINE NEGATIVE (NEG); PROTEIN,URINE NEGATIVE (NEG-TRACE); UROBILINOGEN,URINE 0.2 mg/dL (0.2 mg/dL)
[2017-03-20 13:23] LABS: BACTERIA,URINE 0 /HPF (0-FEW); RBC,URINE 0 /HPF (0-2); SQUAMOUS EPITHELIAL CELL,UR FEW /LPF; WBC,URINE 0 /HPF (0-4)
[2017-03-20] MEDS ORDERED: HYDR-2762 PO (14:25)
[2017-03-20 15:26] VITALS: BP 117/62
--- NOTE | 2017-03-20 15:51 | PDOC ---
PROGRESS NOTES Subjective Subjective Doing well. Ready to go home. Objective Vital Signs Vital Signs Date Time Temp Pulse Resp B/P (MAP) Pulse Ox O2 Delivery O2 Flow Rate FiO2 03/20/17 15:26 98.4 77 19 117/62 (80) 97 Room Air 98.4 03/19/17 17:15 10 Physical Exam Sitting in recliner. Postop splint dry and intact. Neurovascularly intact distally. Light touch sensation normal. Labs Laboratory Tests Test 03/19/17 00:10 03/20/17 10:45 White Blood Count 9.3 x10^3/uL (4.0-11.0) Red Blood Count 3.63 x10^6/uL (3.50-5.40) Hemoglobin 10.5 g/dL (12.0-15.5) Hematocrit 31.8 % (36.0-47.0) Mean Corpuscular Volume 88 fL (79-100) Mean Corpuscular Hemoglobin 29 pg (25-35) Mean Corpuscular Hemoglobin Concent 33 g/dL (31-37) Red Cell Distribution Width 14.1 % (11.5-14.5) Platelet Count 220 x10^3/uL (140-400) Neutrophils (%) (Auto) 66 % (31-73) Lymphocytes (%) (Auto) 24 % (24-48) Monocytes (%) (Auto) 8 % (0-9) Eosinophils (%) (Auto) 1 % (0-3) Basophils (%) (Auto) 1 % (0-3) Neutrophils # (Auto) 6.2 x10^3uL (1.8-7.7) Lymphocytes # (Auto) 2.3 x10^3/uL (1.0-4.8) Monocytes # (Auto) 0.7 x10^3/uL (0.0-1.1) Eosinophils # (Auto) 0.1 x10^3/uL (0.0-0.7) Basophils # (Auto) 0.1 x10^3/uL (0.0-0.2) Prothrombin Time 13.8 SEC (11.7-14.0) Prothromb Time International Ratio 1.1 (0.8-1.1) Activated Partial Thromboplast Time 26 SEC (24-38) Sodium Level 142 mmol/L (136-145) Potassium Level 3.2 mmol/L (3.5-5.1) Chloride Level 106 mmol/L (98-107) Carbon Dioxide Level 31 mmol/L (21-32) Anion Gap 5 (6-14) Blood Urea Nitrogen 20 mg/dL (7-20) Creatinine 1.1 mg/dL (0.6-1.0) Estimated GFR (Cockcroft-Gault) 61.7 Glucose Level 155 mg/dL (70-99) Calcium Level 8.7 mg/dL (8.5-10.1) Urine Collection Type Unknown Urine Color Yellow Urine Clarity Clear Urine pH 7.0 Urine Specific [place] 1.010 Urine Protein Negative mg/dL (NEG-TRACE) Urine Glucose (UA) Negative mg/dL (NEG) Urine Ketones (Stick) Negative mg/dL (NEG) Urine Blood Negative (NEG) Urine Nitrite Negative (NEG) Urine Bilirubin Negative (NEG) Urine Urobilinogen Dipstick 0.2 mg/dL (0.2 mg/dL) Urine Leukocyte Esterase Negative (NEG) Urine RBC 0 /HPF (0-2) Urine WBC 0 /HPF (0-4) Urine Squamous Epithelial Cells Few /LPF Urine Bacteria 0 /HPF (0-FEW) Laboratory Tests Test 03/20/17 10:45 Urine Collection Type Unknown Urine Color Yellow Urine Clarity Clear Urine pH 7.0 Urine Specific [place] 1.010 Urine Protein Negative mg/dL (NEG-TRACE) Urine Glucose (UA) Negative mg/dL (NEG) Urine Ketones (Stick) Negative mg/dL (NEG) Urine Blood Negative (NEG) Urine Nitrite Negative (NEG) Urine Bilirubin Negative (NEG) Urine Urobilinogen Dipstick 0.2 mg/dL (0.2 mg/dL) Urine Leukocyte Esterase Negative (NEG) Urine RBC 0 /HPF (0-2) Urine WBC 0 /HPF (0-4) Urine Squamous Epithelial Cells Few /LPF Urine Bacteria 0 /HPF (0-FEW) Assessment Assessment POD#1 right wrist ORIF Problems: Plan Plan of Care Discharge to home today. Home on Citracal, Vitamin C, and Keflex for open fracture. Lifting, pulling, pushing restriction of 1 pound. Lortab for pain control. F/u with [facility] on 04/01/17. Dr. Martini saw and examined patient as well. AMELIA CHANDRA Mar 20, 2017 15:51
[2017-03-20] MEDS ORDERED: BISACODYL 10 MG SUPP.RECT. PR PRN (16:00)
[2017-03-20] MEDS ORDERED: CEPH-264 PO (16:08)
[2017-03-20] MEDS ORDERED: ONDA4TAB7 PO (16:08)
[2017-03-20] MEDS ORDERED: CALC-104 PO (16:09)
== END 2017-03-20 16:30 | disposition home or self-care (01) | DRG 982 ==
LOC: ER 22:46 → 4 NORTH 23:38
PROVIDERS: ADMIT Internal Medicine; ATTEND Internal Medicine
PROC: 0PSH04Z Reposition Right Radius with Internal Fixation Device, Open Approach (ICD-10-PCS; principal; 2017-03-19 14:30)
DX: N17.9 Acute kidney failure, unspecified (principal); S52.501A Unspecified fracture of the lower end of right radius, initial encounter for closed fracture; E87.6 Hypokalemia; W18.30XA Fall on same level, unspecified, initial encounter; Z96.642 Presence of left artificial hip joint; Z82.49 Family history of ischemic heart disease and other diseases of the circulatory system; Z88.5 Allergy status to narcotic agent
CPT/HCPCS: 36415; 73110; 80048; 81001; 82306; 85025; 85610; 85730; 90715; 96365; 96375; 96376; A4215; C1713; J0690; J1885; J2370; J2405; J2543; J2704; J3010; J3480; J7030; J7120; 99285-25; J2001